=== PATIENT | female | born 1960 | race Caucasian/White ===

== ENCOUNTER 2017-08-30 19:51 | Emergency (ER) | payer OTHER ==
[~2017-08-30] VITALS: Ht 170.2 cm; Wt 59.0 kg
[2017-08-30 20:00] VITALS: PULSE 67; RESP 18; TEMP 98.7; O2SAT 98
[2017-08-30] MEDS ORDERED: CARD120T4 PO (20:16)
[2017-08-30] MEDS ORDERED: IBUPROFEN 600 MG TAB PO ONE (20:30)
[2017-08-30] MEDS ORDERED: LIDOCAINE HCL 1% 50 ML VIAL INFIL ONE (20:30)
[2017-08-30] MEDS ORDERED: TETANUS/DIPHTHERIA TOXOID ADULT 0.5 ML VIAL IM ONE (20:30)
[2017-08-30] MEDS ORDERED: ACETAMINOPHEN/HYDROcodone 325 MG/5 MG TAB PO ONE (20:30)
--- NOTE | 2017-08-30 20:34 | PD ---
Physical Exam Date Seen by Provider: Aug 30, 2017 Time Seen by Provider: 20:33 Data Data Last Documented VS Vital Signs Date Time Temp Pulse Resp B/P (MAP) Pulse Ox O2 Delivery O2 Flow Rate FiO2 08/30/17 20:00 98.7 67 18 98 Orders Orders Tetanus/Diphtheria Tox Adult (Tetanus/Di (08/30/17 20:30) Acetamin-Hydrocod 325-5 Mg ([place] 5-325 (08/30/17 20:30) Ibuprofen (Motrin) (08/30/17 20:30) Lidocaine 1% Inj (50 Ml) (Xylocaine 1% I (08/30/17 20:30) MDM Supervised Visit with LILLIANA: No Narrative Course I was asked to evaluate this patient's left forehead and left elbow laceration. The patient was initially seen by Dr. Downey. Please see his note for full H&P. On my exam [she is alert and oriented. There is a 4 similar complex laceration just lateral and superior to the left eyebrow. She has a large abrasion on the left elbow with a 1 cm area of deeper laceration. Laceration repair was performed. Please see my procedure note for details. Dr. Downey retains care of this patient. Please see his note for disposition. Procedures Procedure Narrative LACERATION LOCATION: Left forehead LENGTH: 4 cm complex. NUMBER OF STITCHES/LINDSEY: 3 deep, 7 superficial REPAIR: The area of the laceration was prepped with Betadine and sterilely draped. The laceration was infiltrated with 1% lidocaine . The wound was copiously irrigated and explored without evidence of foreign body, tendon injury or neurovascular injury. The wound was closed using 4-0 Vicryl and 4-0 Prolene. This was a 2 layer repair. A sterile dressing was applied. The patient was advised to keep the dressing clean and dry. Patient tolerated the procedure well. LACERATION LOCATION: Left lateral elbow LENGTH: 1.5 cm NUMBER OF STITCHES/LINDSEY: 2 REPAIR: The area of the laceration was prepped with Betadine and sterilely draped. The laceration was infiltrated with 1% lidocaine. The wound was copiously irrigated and explored without evidence of foreign body, tendon injury or neurovascular injury. The wound was closed using 4-0 Prolene. This was a single layer repair. A sterile dressing was applied. The patient was advised to keep the dressing clean and dry. Patient tolerated the procedure well. Melvina Myles Aug 30, 2017 20:34
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
--- NOTE | 2017-08-30 22:04 | PD ---
Physical Exam Date Seen by Provider: Aug 30, 2017 Time Seen by Provider: 22:03 Narrative For full history and physical examination please see previous provider's note. I repaired laceration to patient's right elbow. Data Data Last Documented VS Vital Signs Date Time Temp Pulse Resp B/P (MAP) Pulse Ox O2 Delivery O2 Flow Rate FiO2 08/30/17 20:00 98.7 67 18 98 Orders Orders Tetanus/Diphtheria Tox Adult (Tetanus/Di (08/30/17 20:30) Acetamin-Hydrocod 325-5 Mg ([place] 5-325 (08/30/17 20:30) Ibuprofen (Motrin) (08/30/17 20:30) Lidocaine 1% Inj (50 Ml) (Xylocaine 1% I (08/30/17 20:30) Ed Discharge Order (08/30/17 22:01) [facility] Medical Record Reviewed: Yes Supervised Visit with LILLIANA: Yes Procedures Procedure Narrative LACERATION LOCATION: Right upper arm just proximal to the elbow posteriorly LENGTH: 2 cm NUMBER OF STITCHES/LINDSEY: 2 stitches REPAIR: The area of the laceration was prepped with Betadine and sterilely draped. The laceration was infiltrated with 1% lidocaine. The wound was copiously irrigated and explored without evidence of foreign body, tendon injury or neurovascular injury. The wound was closed using 4-0 Ethilon. This was a 1 layer repair. A sterile dressing was applied. The patient was advised to keep the dressing clean and dry. Patient tolerated the procedure well. Diagnosis Primary Impression: Facial laceration Additional Impression: Abrasion of left elbow Additional Instruction: Follow-up with your primary doctor in 1 week for suture removal. Keep wound clean and dry. Do not wet for 24 hours. After 24 hours and clean the wound gently with soap and water. Gently clean wound twice daily with soap and water. Do not soak wound. No swimming, hot tubs, or allowing wound to get too wet. Apply antibiotic ointment to wound twice daily. Return to the emergency department for any worsening pain, swelling, redness, significant bleeding, or any other new or worsening symptoms. Use acetaminophen or ibuprofen as needed for body aches. You will likely be more sore tomorrow. You may have soreness in your neck, back , arms or legs. You should not have any chest pain, trouble breathing, abdominal pain, worsening headache, numbness or tingling, or difficulty walking. If any of these other symptoms develop he should return to the emergency Department immediately. Disposition: 01 DISCHARGE HOME Condition: Stable Chyna Tran Aug 30, 2017 22:04
--- NOTE | 2017-08-30 22:04 | PD ---
Physical Exam Date Seen by Provider: Aug 30, 2017 Time Seen by Provider: 22:03 Narrative For full history and physical examination please see previous provider's note. I repaired laceration to patient's right elbow. Data Data Last Documented VS Vital Signs Date Time Temp Pulse Resp B/P (MAP) Pulse Ox O2 Delivery O2 Flow Rate FiO2 08/30/17 20:00 98.7 67 18 98 Orders Orders Tetanus/Diphtheria Tox Adult (Tetanus/Di (08/30/17 20:30) Acetamin-Hydrocod 325-5 Mg ([place] 5-325 (08/30/17 20:30) Ibuprofen (Motrin) (08/30/17 20:30) Lidocaine 1% Inj (50 Ml) (Xylocaine 1% I (08/30/17 20:30) Ed Discharge Order (08/30/17 22:01) [facility] Medical Record Reviewed: Yes Supervised Visit with LILLIANA: Yes Procedures Procedure Narrative LACERATION LOCATION: Right upper arm just proximal to the elbow posteriorly LENGTH: 2 cm NUMBER OF STITCHES/LINDSEY: 2 stitches REPAIR: The area of the laceration was prepped with Betadine and sterilely draped. The laceration was infiltrated with 1% lidocaine. The wound was copiously irrigated and explored without evidence of foreign body, tendon injury or neurovascular injury. The wound was closed using 4-0 Ethilon. This was a 1 layer repair. A sterile dressing was applied. The patient was advised to keep the dressing clean and dry. Patient tolerated the procedure well. Diagnosis Primary Impression: Facial laceration Additional Impression: Abrasion of left elbow Additional Instruction: Follow-up with your primary doctor in 1 week for suture removal. Keep wound clean and dry. Do not wet for 24 hours. After 24 hours and clean the wound gently with soap and water. Gently clean wound twice daily with soap and water. Do not soak wound. No swimming, hot tubs, or allowing wound to get too wet. Apply antibiotic ointment to wound twice daily. Return to the emergency department for any worsening pain, swelling, redness, significant bleeding, or any other new or worsening symptoms. Use acetaminophen or ibuprofen as needed for body aches. You will likely be more sore tomorrow. You may have soreness in your neck, back , arms or legs. You should not have any chest pain, trouble breathing, abdominal pain, worsening headache, numbness or tingling, or difficulty walking. If any of these other symptoms develop he should return to the emergency Department immediately. Disposition: 01 DISCHARGE HOME Condition: Stable Chyna Tran Aug 30, 2017 22:04
[2017-08-30 22:40] VITALS: BP 125/78; PULSE 60; RESP 18; O2SAT 99
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
== END 2017-08-31 00:58 | disposition home or self-care (01) ==
LOC: NEPD 19:51
DX: S51.012A Laceration without foreign body of left elbow, initial encounter (principal); S51.011A Laceration without foreign body of right elbow, initial encounter; S01.81XA Laceration without foreign body of other part of head, initial encounter; V29.9XXA Motorcycle rider (driver) (passenger) injured in unspecified traffic accident, initial encounter; Z23 Encounter for immunization
CPT/HCPCS: 12002; 12052; 70450; 90471; 90714